=== PATIENT | female | born 1965 | race African-American/Black ===

== ENCOUNTER → 2016-06-12 | Outpatient (CLI) | payer SELFPAY ==
--- NOTE | ~2016-06-12 | CR169 ---
[facility] A Service of [facility] & [facility] RADIOLOGY TEXT RESULTS PATIENT: DONA JOHNSON I LOCATION: [facility] : 61 UNIT #: [id number] AGE: [address]: AKUA GONSALES APRN SEX: F ORDER DR: [id number] [facility] [address] [place], [place] [address] [id number] O MR#: [id number] Acc #: [id number] NAME: DONA JOHNSON : 1965 SEX: F STUDY DATE/TIME: 06/12/2016 13:44 UNIT: [facility] ROOM: STUDY DESCRIPTION: CR Knee 2 Views Lt Attending Physician: Akua Gonsales A.P.R.N. Referring Physician: Akua Gonsales A.P.R.N. Ordering Physician: Ed Doctor [id number] [facility] Primary Care Physician: Akua Gonsales A.P.R.N. MEDICAL IMAGING REPORT This report is preliminary unless electronic signature is present EXAM Left knee 2 views 06/12/2016 HISTORY Knee pain and swelling after twisting injury 1 month ago. FINDINGS 2 views of the left knee demonstrate mild degenerative joint space narrowing in the medial compartment. Moderate sized medial joint line marginal osteophyte and small lateral joint line marginal osteophyte. Mild degenerative changes in the patellofemoral joint. Moderate soft tissue swelling over the medial margin of the knee. IMPRESSION 1. Moderate soft tissue swelling over the medial margin of the knee. 2. Mild degenerative joint space narrowing and moderate sized medial joint line marginal osteophyte in the medial compartment. 3. Mild degenerative changes in the lateral and patellofemoral compartments. Dictated by... Julien Stuart M.D. THIS IS AN ELECTRONICALLY VERIFIED REPORT Julien Stuart M.D. at 06/20/2016 10:34 PM Allen TD: 06/12/2016 18:49 JOB #: [id number] MEDICAL IMAGING REPORT COPY
== END | disposition home or self-care (01) ==
LOC: CRAD 13:21
DX: M25.562 Pain in left knee (principal); M17.12 Unilateral primary osteoarthritis, left knee; R22.42 Localized swelling, mass and lump, left lower limb
CPT/HCPCS: 73560